=== PATIENT | male | born 1965 | race Asian ===

== ENCOUNTER 2020-01-09 19:04 | Emergency (ER) | payer OTHER ==
--- NOTE | 2020-01-09 19:11 | PDOC ---
Rapid Medical Evaluation Time Seen by Provider: 01/09/20 19:10 Medical Evaluation: Allergies Allergy/AdvReac Type Severity Reaction Status Date / Time No Known Allergies Allergy Verified 05/13/16 18:59 01/09/20 19:10 CC: diarrhea x1 day PE: No focal findings Orders: labs, IVF, urine Patient will proceed to ED for further evaluation. Discharge Disposition - Diagnosis Diarrhea - Referrals - Patient Instructions - Post Discharge Activity
[2020-01-09 19:12] VITALS: BMI 25.8
[2020-01-09] MEDS ORDERED: SODIUM CHLORIDE 1,000 ML IV STA ×2 (19:12→21:55)
--- NOTE | 2020-01-09 20:47 | PDOC ---
History of Present Illness - General Chief Complaint: Diarrhea Stated Complaint: DIARRHEA Time Seen by Provider: 01/09/20 19:10 History Source: Patient Exam Limitations: No Limitations - History of Present Illness Initial Comments: 01/09/20 20:48 54 yo male pmh HTN and NIDDM presents to the ED for 1 day of loose stools. Pt states he had approx 3 episodes of loose stools today without blood and mild diffuse abdominal cramping prior to BM and pain is resolved after BM. Pt also admits to his daughter at home with nausea and vomiting. Denies F/C/N/V, recent travel, persistent or localized abdominal pain, weakness, dizziness, CP, SOB, back pain, changes in urinary habits. Pt never saw GI outpatient for colonoscopy, PCP is Dr. Purdy. Past History - Past Medical History Allergies/Adverse Reactions: Allergies Allergy/AdvReac Type Severity Reaction Status Date / Time No Known Allergies Allergy Verified 01/09/20 19:11 Home Medications: Ambulatory Orders metFORMIN HCL [Glucophage -] 500 mg PO BID 12/01/15 Loperamide HCl [Imodium -] 2 mg PO BID #14 capsule 01/09/20 Losartan Potassium [Cozaar -] 100 mg PO DAILY 01/09/20 Anemia: No Asthma: No Cancer: No Cardiac Disorders: No CVA: No COPD: No CHF: No Dementia: No Diabetes: Yes Disorders: No HTN: Yes Hypercholesterolemia: No Liver Disease: No Seizures: No Thyroid Disease: No - Surgical History Abdominal Surgery: No Appendectomy: No Cardiac Surgery: No Cholecystectomy: No Lung Surgery: No Neurologic Surgery: No Orthopedic Surgery: No - Psycho Social/Smoking Cessation Hx Smoking Status: No Smoking History: Never smoked Have you smoked in the past 12 months: No Number of Cigarettes Smoked Daily: 0 Hx Alcohol Use: No Drug/Substance Use Hx: No Substance Use Type: None Hx Substance Use Treatment: No Review of Systems - Review of Systems Constitutional: Yes: See HPI HEENTM: Yes: See HPI Respiratory: Yes: See HPI Cardiac (ROS): Yes: See HPI ABD/GI: Yes: See HPI : Yes: See HPI Musculoskeletal: Yes: See HPI Integumentary: Yes: See HPI Neurological: Yes: See HPI *Physical Exam - Vital Signs Last Vital Signs Temp Pulse Resp BP Pulse Ox 99.6 F 106 H 18 160/93 97 01/09/20 19:09 01/09/20 19:09 01/09/20 19:09 01/09/20 19:09 01/09/20 19:09 - Physical Exam General Appearance: Yes: Nourished, Appropriately Dressed. No: Apparent Distr ess HEENT: positive: EOMI Neck: positive: Supple. negative: Carotid bruit Respiratory/Chest: positive: Lungs Clear, Normal Breath Sounds. negative: Respiratory Distress, Accessory Muscle Use, Rapid RR, Crackles, Rales, Rhonchi, Stridor, Wheezing Cardiovascular: positive: Regular Rhythm, S1, S2, Tachycardia. negative: Edema, JVD, Murmur Vascular Pulses: Dorsalis-Pedis (R): 4+, Doralis-Pedis (L): 4+ Gastrointestinal/Abdominal: positive: Flat, Soft. negative: Pulsatile Mass, Protuberent, Distended, Guarding, Rebound, Tenderness Musculoskeletal: negative: CVA Tenderness Extremity: positive: Normal Capillary Refill, Normal Inspection, Normal Range of Motion Integumentary: positive: Normal Color, Dry, Warm Neurologic: positive: Fully Oriented, Alert, Normal Mood/Affect, Normal Response ED Treatment Course - LABORATORY CBC & Chemistry Diagram: 01/09/20 21:00 01/09/20 21:00 Medical Decision Making - Medical Decision Making 01/09/20 21:02 54 yo male pmh HTN and NIDDM presents to the ED for 1 day of loose stools. Pt states he had approx 3 episodes of loose stools today without blood and mild diffuse abdominal cramping prior to BM and pain is resolved after BM. Pt also admits to his daughter at home with nausea and vomiting. Denies F/C/N/V, recent travel, persistent or localized abdominal pain, weakness, dizziness, CP, SOB, back pain, changes in urinary habits. Pt never saw GI outpatient for colonoscopy, PCP is Dr. Purdy. Vitals show 106 HR otherwise WNL Pt is well appearing, NAD, denies any abdominal pain and no pain ilicited on palpation RME ordered labs and fluids. WIll reassess after fluids 01/09/20 21:56 CBC WNL CMP shows Na of 126. Asymptomatic hyponatremia. Pt received 2L NS and will F/U w ith PCP BS over 200, 2L fluids given Pt feels well, HR 92 at the bedside after repeat Pt safe for DC home with PCP f/u and over the counter Imodium Discharge - Discharge Information Problems reviewed: Yes Clinical Impression/Diagnosis: Diarrhea Condition: Stable Disposition: HOME - Admission No - Follow up/Referral Referrals: Flores Purdy MD [Primary Care Provider] - - Patient Discharge Instructions Patient Printed Discharge Instructions: Diarrhea Additional Instructions: Please see your Primary Doctor within the next 48 hours. Take the medication Imodium that was sent to your Pharmacy 2 times a day until the watery stools resolve. Your sodium level was low and you were given fluids with sodium in them, you Continue using your home dosed medications as prescribed. Return to the ER for new or concerning symptoms including but not limited to: weakness, dizziness, seizures, difficulty with balance. Thank you - Post Discharge Activity
[2020-01-09 21:26] LABS: BASO % 0.6 % (0-2.0); EOS % 0.3 % (0-4.5); HEMATOCRIT 45.5 % (35.4-49); HEMOGLOBIN 14.8 GM/dL (11.7-16.9); LYMPH % 17.1 % (8-40); MCH 26.2 pg (25.7-33.7); MCHC 32.6 g/dl (32.0-35.9); MEAN CELL VOLUME 80.3 fl (80-96); MEAN PLT VOLUME 9.8 fl (7.5-11.1); MONO % 15.3 % (3.8-10.2); NEUT % 66.7 % (42.8-82.8); PLATELET COUNT 180 K/MM3 (134-434); RBC 5.67 M/mm3 (4.00-5.60); RDW 14.5 % (11.9-15.9); WHITE BLOOD COUNT 6.2 K/mm3 (4.0-10.0)
[2020-01-09 21:54] LABS: ALBUMIN 3.9 g/dl (3.4-5.0); BLOOD UREA NITROGEN 9.2 mg/dL (7-18); CALCIUM 8.7 mg/dL (8.5-10.1); CREATININE 1.1 mg/dL (0.55-1.3); POTASSIUM 4.6 mmol/L (3.5-5.1); TOT PROT 7.2 g/dl (6.4-8.2)
[2020-01-09] MEDS ORDERED: LOPERAMIDE HCL 2 MG CAPSULE PO ONE (21:54)
[2020-01-09] MEDS ORDERED: LOPERAMIDE HCL 2 MG CAPSULE ONE (21:56)
--- NOTE | 2020-01-09 21:57 | PDOC ---
Documentation entered by Analy Vasquez SCRIBE, acting as scribe for Ramya Buck MD. Ramya Buck MD: This documentation has been prepared by the Pedro diallo Xhesika, SCRIBE, under my direction and personally reviewed by me in its entirety. I confirm that the documentation accurately reflects all work, treatment, procedures, and medical decision making performed by me. Attending Attestation - Resident Resident Name: Migue Rosado - ED Attending Attestation I have performed the following: I have examined & evaluated the patient, The case was reviewed & discussed with the resident, I agree w/resident's findings & plan, Exceptions are as noted - HPI HPI: 01/09/20 20:52 54-year-old male who had 1 day of watery stool 3 episodes today 2 episodes yesterday. He has some cramping prior to using the bathroom but this was resolved after afterwards. He denies any fever or chills his daughter does have nausea vomiting but no diarrhea - Physicial Exam PE: 01/09/20 20:56 GENERAL: Awake, alert, and fully oriented, in no acute distress HEAD: No signs of trauma NECK: Normal ROM, supple, no lymphadenopathy, JVD, or masses LUNGS: Breath sounds equal, clear to auscultation bilaterally. No wheezes, and no crackles HEART: Regular rate and rhythm, normal S1 and S2, no murmurs, rubs or gallops ABDOMEN: Soft, nontender, normoactive bowel sounds. No guarding, no rebound. No masses EXTREMITIES: Normal range of motion, no edema. No clubbing or cyanosis. No cords, erythema, or tenderness NEUROLOGICAL: Cranial nerves II through XII grossly intact. SKIN: Warm, Dry, normal turgor, no rashes or lesions noted. - Medical Decision Making 01/09/20 21:55 54-year-old male who denies fever ,chills past medical history of type 2 diabetes and hypertension CBC is unremarkable Chemistries do show hyperglycemia and some hyponatremia with a sodium of 126. Patient is asymptomatic at this time and is receiving IV fluids Plan viral syndrome/diarrhea discharge home
[2020-01-09 22:41] LABS: PH,URINE 5.5 (5.0-8.0); URINE APPEARANCE CLEAR; URINE BILIRUBIN NEGATIVE (NEGATIVE); URINE COLOR YELLOW; URINE GLUCOSE (UA) TRACE (NEGATIVE); URINE KETONE NEGATIVE (NEGATIVE); URINE LEUK ESTERASE NEGATIVE (NEGATIVE); URINE NITRITE NEGATIVE (NEGATIVE); URINE PROTEIN NEGATIVE (NEGATIVE); URINE UROBILINOGEN 0.2 mg/dL (0.2-1.0)
[2020-01-09 23:59] VITALS: BP 129/82; PULSE 86; TEMP 99.3
== END 2020-01-09 23:35 | disposition home or self-care (01) ==
LOC: JER 19:04
PROC: 3E0337Z Introduction of Electrolytic and Water Balance Substance into Peripheral Vein, Percutaneous Approach (ICD-10-PCS; principal; 2020-01-09)
DX: B34.9 Viral infection, unspecified (principal); I10 Essential (primary) hypertension; E11.65 Type 2 diabetes mellitus with hyperglycemia; Z79.84 Long term (current) use of oral hypoglycemic drugs; E87.1 Hypo-osmolality and hyponatremia
CPT/HCPCS: 36415; 80053; 81003; 83690; 85025; 99283-25; J7030